=== PATIENT | male | born 1965 | race Caucasian/White ===

== ENCOUNTER 2024-09-23 07:36 | Day surgery (SDC) | payer MEDICAID ==
[2024-09-23] MEDS: Lactated Ringers 1,000 ML IV SCH (08:43)
[2024-09-23] MEDS ORDERED: Propofol 200 MG/20 ML SDV ONE (10:47)
[2024-09-23] MEDS ORDERED: Midazolam 1 MG/ML 2 ML SDV ONE (10:47)
[2024-09-23] MEDS ORDERED: fentaNYL 50 MCG/ML SDV ONE (10:48)
[2024-09-23 11:58] VITALS: BP 106/71; PULSE 71
== END 2024-09-23 12:44 | disposition home or self-care (01) ==
LOC: JP.SDS 07:36
PROVIDERS: ATTEND Family Medicine
DX: K29.50 Unspecified chronic gastritis without bleeding (principal); K21.9 Gastro-esophageal reflux disease without esophagitis; K44.9 Diaphragmatic hernia without obstruction or gangrene
CPT/HCPCS: 00731; 43239; 88305; J2250; J2704; J3010; J7120